=== PATIENT | female | born 1990 | race African-American/Black ===

== ENCOUNTER 2018-05-23 23:36 | Emergency (ER) | payer OTHER ==
[~2018-05-23] VITALS: Ht 170.2 cm; Wt 101.2 kg
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
[2018-05-23 23:40] VITALS: BP 114/79
--- NOTE | 2018-05-23 23:44 | NUR ---
PATIENT REFUSED TO PUT ON HOSPITAL GOWN
[2018-05-23] MEDS ORDERED: DIAZEPAM 5 MG TAB PO ONE (23:45)
[2018-05-23] MEDS ORDERED: KETOROLAC 30 MG/ML VIAL IM ONE (23:45)
[2018-05-24] MEDS ORDERED: fentaNYL 0.05 MG/ML VIAL NS ONE (00:40)
--- NOTE | 2018-05-24 00:42 | NUR ---
[facility] AT BEDSIDE
--- NOTE | 2018-05-24 00:45 | NUR ---
PT C/O 10/10 CHEST WALL PAIN DESPITE MEDS. ER MD MADE AWARE.
[2018-05-24] MEDS ORDERED: HYDROcodone/APAP 5/325 MG 1 TAB TAB PO ONE (01:00)
[2018-05-24 02:09] VITALS: BP 113/77
--- NOTE | 2018-05-24 02:09 | NUR ---
Patient discharged with v/s stable. Written and verbal after care instructions given and explained. Patient alert, oriented and verbalized understanding of instructions. Ambulatory with steady gait. All questions addressed prior to discharge. ID band removed. Patient advised to follow up with PMD. Rx of FLEXERIL, NORCO, NAPROSYN given. Patient educated on indication of medication including possible reaction and side effects. Opportunity to ask questions provided and answered.
== END 2018-05-24 02:09 | disposition home or self-care (01) ==
LOC: MED 23:36
DX: R07.89 Other chest pain (principal); V43.52XA Car driver injured in collision with other type car in traffic accident, initial encounter; Y93.89 Activity, other specified; Y92.411 Interstate highway as the place of occurrence of the external cause; Y99.8 Other external cause status
CPT/HCPCS: 71045; 81002; 81025; 96372; 99283; J1885; Q0092; J3010